=== PATIENT | female | born 1965 | race Caucasian/White ===

== ENCOUNTER → 2018-10-08 08:20 | Outpatient (CLI) | payer MEDICAID | END | disposition home or self-care (01) | LOC: D.OPS 10-03 09:30 | PROVIDERS: ATTEND Surgery | DX: K21.9 Gastro-esophageal reflux disease without esophagitis (principal); Z01.812 Encounter for preprocedural laboratory examination ==

== ENCOUNTER 2018-11-13 08:16 | Inpatient (IN) | payer MEDICAID ==
[~2018-11-13 08:16] MED LIST: AMBIEN10 MG PO; AVAPRO150 MG PO; OMEPRAZOLE40 MG PO
[2018-11-13 08:46] LABS: HEMATOCRIT 41.5 % (36.0-48.0); HEMOGLOBIN 13.9 g/dL (12-16); MCH 28.5 pg (26.0-34.0); MCHC 33.5 g/dL (31.0-37.0); MEAN PLATELET VOLUME 8.8 fL (7.4-10.4); RBC 4.88 10x6/uL (4.00-5.40); RDW 14.7 % (11.5-14.5); WBC 13.5 10x3/uL (4.8-10.8)
[2018-11-13 10:41] VITALS: BP 165/93; BMI 25.1
[2018-11-13 13:30] LABS: HEMATOCRIT 36.7 % (36.0-48.0); HEMOGLOBIN 12.2 g/dL (12-16)
--- NOTE | 2018-11-13 15:18 | NUR ---
80CC OF DRAINAGE REMOVED FROM JEZ DRAIN @6752
[2018-11-13 15:41] VITALS: BP 148/73
[2018-11-13 17:22] VITALS: BMI 24.6
[2018-11-13 18:32] LABS: HEMOGLOBIN 11.3 g/dL (12-16)
--- NOTE | 2018-11-13 19:45 | NUR ---
PT RESTING IN BED. ALERT AND ORIENTED. NO SIGNS OF DISTRESS. BREATHING EVEN AND UNLABORED. PT STATES NO PROBLEMS AT THIS TIME. IV SITE RT WRIST DRESSING CLEAN DRY AND INTACT. NO SIGNS OF INFECTION. DRESSINGS ABD CLEAN DRY AND INTACT. RLQ AND LLQ HYPOACTIVE BOWEL SOUNDS. RUQ AND LUQ BOWEL SOUNDS ABSENT. NO LOWER LEG SWELLING PRESENT. WILL CONTINUE PLAN OF CARE. CALL LIGHT IN REACH. BED LOWERED AND LOCKED. BED RAILS UP X2. JEZ DRAIN LT LOWER ABD DRESSING CLEAN DRY AND INTACT.
[2018-11-13 22:28] VITALS: BP 156/95
--- NOTE | 2018-11-14 03:42 | NUR ---
I have reviewed this patient and I concur with the Shift Assessment completed by the Licensed Practical Nurse today this shift.
[2018-11-14 05:02] VITALS: BP 171/97
[2018-11-14 05:51] LABS: BASOPHILS 0.1 % (0-2); EOSINOPHILS 0 % (0-7); HEMATOCRIT 33.8 % (36.0-48.0); HEMOGLOBIN 11.1 g/dL (12-16); IMMATURE GRANULOCYTES 0.4 % (0-5); LYMPHOCYTES 8.8 % (15-50); MCHC 32.8 g/dL (31.0-37.0); MCV 85.1 fL (80.0-100.0); MEAN PLATELET VOLUME 9.1 fL (7.4-10.4); MONOCYTES 4.6 % (2-11); NEUTROPHILS 86.1 % (40-80); PLATELET COUNT 335 10x3/uL (130-400); RBC 3.97 10x6/uL (4.00-5.40); RDW 14.6 % (11.5-14.5)
[2018-11-14 05:55] LABS: WBC 19.4 10x3/uL (4.8-10.8)
[2018-11-14 06:17] LABS: ALBUMIN 3.1 g/dL (3.4-5.0); ANION GAP 11.9 mmol/L (8-16); BILIRUBIN - TOTAL 0.39 mg/dL (0.2-1.3); CALCIUM 8.4 mg/dL (8.5-10.1); CARBON DIOXIDE 28.7 mmol/L (21.0-32.0); CREATININE - SERUM 1.3 mg/dL (0.6-1.3); POTASSIUM - SERUM 3.6 mmol/L (3.5-5.1); PROTEIN - SERUM 6.7 g/dL (6.4-8.2)
--- NOTE | 2018-11-14 07:37 | NUR ---
ALERT AND ORIENTED X 3. LUNGS CLEAR BILATERALLY IN ALL GARCIA. HEART SOUNDS S1 AND S2 HEARD IN ALL GARCIA. BOWEL SOUNDS ACTIVE X 4. JEZ DRAIN TO LUQ DRAINING RED FLUID. LAP SITES TO ABD WITH STERI STRIPS INTACT. NO DRAINAGE FROM LAP SITES NOTED. IV TO LFA PATENT WITHOUT REDNESS. IV TO RIGHT WRIST PATENT WITHOUT REDNESS. SKIN INTACT WTIHOUT REDNESS. STATES PAIN 3/10. DENIES NEEDS. WILL CONTINUE TO MONITOR.
[2018-11-14 08:20] VITALS: BP 176/91
--- NOTE | 2018-11-14 09:23 | NUR ---
AMBULATED 250 FEET WITH NURSE STANDBY ASSIST WITHOUT DIFFICULTY
--- NOTE | 2018-11-14 10:45 | NUR ---
PATIENT LYING IN BED. DENIES PAIN. DENIES NEEDS.
--- NOTE | 2018-11-14 12:04 | NUR ---
IV TO RIGHT WRIST LEAKING. REMOVED WITH CATHETER TIP INTACT. FLUIDS MOVED TO IV IN LFA.
[2018-11-14 12:26] VITALS: BP 132/73
--- NOTE | 2018-11-14 14:09 | NUR ---
PATIENT RESTING IN BED. DENIES PAIN. DENIES NEEDS AT THIS TIME
[2018-11-14 14:44] VITALS: BP 118/74
--- NOTE | 2018-11-14 15:27 | NUR ---
AMBULATED 750 FEET PER NURSING. JEZ DRAINED WITH 15CC DRAINAGE NOTED
--- NOTE | 2018-11-14 16:36 | NUR ---
PATIENT RESTING IN BED. DENIES PAIN. DENIES NEEDS. WILL CONTINUE TO MONITOR.
--- NOTE | 2018-11-14 18:49 | NUR ---
PATIENT RESTING. DENIES PAIN. DENIES NEEDS
--- NOTE | 2018-11-14 20:28 | NUR ---
AMBULATED AROUND UNIT X 4. NO DISTRESS NOTED. JEZ DRAIN TO LEFT ABD INTACT AND COMPRESSED WITH DARK BLOODY DRAINAGE NOTED. LAP SITES WITH STERI STRIPS INTACT.NO DRAINAGE NOTED.ABD TENDER,NON DISTENDED. NO COMPLAINTS VOICED. BLUEPRINT MACHINE OPERATOR DILAUDID IN USE FOR PAIN CONTROL. CL IN REACH
[2018-11-14 20:52] VITALS: BP 101/62
[2018-11-15 01:02] VITALS: BP 114/68
--- NOTE | 2018-11-15 03:26 | NUR ---
I have reviewed this patient and I concur with the Shift Assessment completed by the Licensed Practical Nurse today this shift.
[2018-11-15 03:52] LABS: BASOPHILS 0.1 % (0-2); EOSINOPHILS 0.1 % (0-7); IMMATURE GRANULOCYTES 0.3 % (0-5); LYMPHOCYTES 11.5 % (15-50); MCH 28.2 pg (26.0-34.0); MCHC 33.5 g/dL (31.0-37.0); MCV 84.3 fL (80.0-100.0); MEAN PLATELET VOLUME 8.9 fL (7.4-10.4); MONOCYTES 5.6 % (2-11); NEUTROPHILS 82.4 % (40-80); PLATELET COUNT 268 10x3/uL (130-400); RDW 14.6 % (11.5-14.5)
[2018-11-15 03:54] LABS: HEMATOCRIT 26.3 % (36.0-48.0); HEMOGLOBIN 8.8 g/dL (12-16); RBC 3.12 10x6/uL (4.00-5.40)
[2018-11-15 04:03] LABS: ANION GAP 7.3 mmol/L (8-16); CALCIUM 7.8 mg/dL (8.5-10.1); CARBON DIOXIDE 33.3 mmol/L (21.0-32.0); POTASSIUM - SERUM 3.6 mmol/L (3.5-5.1)
[2018-11-15 04:54] VITALS: BP 109/68
[2018-11-15 07:59] VITALS: BP 87/44
--- NOTE | 2018-11-15 10:03 | NUR ---
SECONDARY IV STARTED TO RT. FOREARM WITH 20G X 1 STICK. WITH 1ST UNIT PRBC'S INFUSING AT PRESCRIBEDE RATE. NO S/S OF REACTION NOTED AT THIS TIME. QUINTON INTACT TO ABDOMEN WITH J/P DRAIN INTACT WITH DARK BLOOD NOTED.ENCOURAGED TO USE CALL LIGHT FOR ASSIST. BS NOTED X4 WITH STATED FLATULANCE
[2018-11-15 11:24] VITALS: BP 111/69
--- NOTE | 2018-11-15 12:19 | NUR ---
FINISHED 1ST UNIT PRBC'S AND STARTED SECOND WITH NO S/S OF REACTION NOTED. DENIES ANY PAIN OR DISCOMFORT. ENCOURAGED TO USE CALL LIGHT FOR ASSIST
--- NOTE | 2018-11-15 15:22 | NUR ---
FINISHED SECOND UNIT PRBC'S AND STARTED PLASMA. NO S/S OF REACTION NOTED WITH DILAUDID 0.5ML GIVEN FOR AGDOMINAL PAIN 10.
[2018-11-15 16:17] VITALS: BP 133/79
--- NOTE | 2018-11-15 19:40 | NUR ---
PT ALERT AND ORIENTED. FAMILY AT BEDSIDE. ASKED TO BE UNHOOKED FROM IV MACHINE SO PT COULD AMBULATE FLOOR WITH FAMILY. PT AMBULATED UNIT 5 TIMES WITH NO PROBLEM.
--- NOTE | 2018-11-15 19:45 | NUR ---
PT ALERT AND ORIENTED
[2018-11-15 20:00] VITALS: BP 132/75
--- NOTE | 2018-11-16 00:02 | NUR ---
RESTING WITH UNLABORED BREATHING AND EYES CLOSED. REAMINS AT BEDSIDE. IV IN BILATERALY FOREARMS. LEFT ARM SALINE LOCKED. RIGHT FOREARM INFUSING LR @ 30 PER ORDER. CALL LIGHT IN REACH. BED RAILS UP X 2.
--- NOTE | 2018-11-16 02:27 | NUR ---
REQUESTED PAIN MEDICINE. ADMINSITERED ORDERED.
[2018-11-16 03:00] VITALS: BP 121/65
[2018-11-16 05:19] LABS: BASOPHILS 0.1 % (0-2); EOSINOPHILS 0.1 % (0-7); HEMATOCRIT 30.8 % (36.0-48.0); HEMOGLOBIN 10.5 g/dL (12-16); IMMATURE GRANULOCYTES 0.2 % (0-5); LYMPHOCYTES 16.2 % (15-50); MCH 28.6 pg (26.0-34.0); MCHC 34.1 g/dL (31.0-37.0); MCV 83.9 fL (80.0-100.0); MEAN PLATELET VOLUME 9.3 fL (7.4-10.4); MONOCYTES 6.3 % (2-11); NEUTROPHILS 77.1 % (40-80); PLATELET COUNT 222 10x3/uL (130-400); RBC 3.67 10x6/uL (4.00-5.40); RDW 14.6 % (11.5-14.5)
[2018-11-16 05:30] LABS: WBC 10.7 10x3/uL (4.8-10.8)
[2018-11-16 05:32] LABS: CALCIUM 8.1 mg/dL (8.5-10.1); CARBON DIOXIDE 32.3 mmol/L (21.0-32.0); POTASSIUM - SERUM 3.3 mmol/L (3.5-5.1)
[2018-11-16 05:36] LABS: CREATININE - SERUM 1.6 mg/dL (0.6-1.3)
--- NOTE | 2018-11-16 06:54 | NUR ---
I CONCUR WITH ADMINISTRATIVE SUPPORT ASSOCIATE ASSESSMENT.
--- NOTE | 2018-11-16 09:33 | NUR ---
ALERT AND ORIENTED WITH BS NOTED X4 AND NONTENDER ON PALPATION. QUINTON INTACT. NORCO GIVEN FOR GENERALIZED DISCOMFORT AFTER ABMULATING 5 LAPS IN HALLWAY. JEZ DRAIN INTACT WITH DARK BROWN SEDEMENT NOTED. ENCOURAGED O USE CALLL LIGHT FOR ASSIST.
[2018-11-16 09:50] VITALS: BP 111/63
[2018-11-16] MEDS ORDERED: HYDROCODON-ACE1 EA10 PO (10:08)
--- NOTE | 2018-11-16 11:55 | NUR ---
IV'S DISCONTINUED WITH VERBALIZED UNDERSTANDING OF DISCHARGE INSTRUCTIONS. STABLE AT TIME OF DEPARTURE. RX GIVEN TO PT.
== END 2018-11-16 12:00 | disposition home or self-care (01) | DRG 908 ==
LOC: D.MS 08:16 → D.OPS 08:16 → D.PAN 09:45 → D.OPS 09:45 → D.MS 15:07 → D.OPS 15:08 → D.MS 15:08
PROVIDERS: Anesthesiology; ADMIT Surgery; ATTEND Surgery
PROC: 0DNW4ZZ Release Peritoneum, Percutaneous Endoscopic Approach (ICD-10-PCS; 2018-11-13)
PROC: 0DV44ZZ Restriction of Esophagogastric Junction, Percutaneous Endoscopic Approach (ICD-10-PCS; principal; 2018-11-13 10:45)
PROC: 0BQT4ZZ Repair Diaphragm, Percutaneous Endoscopic Approach (ICD-10-PCS; 2018-11-13 10:45)
DX: K91.61 Intraoperative hemorrhage and hematoma of a digestive system organ or structure complicating a digestive system procedure (principal); D62 Acute posthemorrhagic anemia; K21.9 Gastro-esophageal reflux disease without esophagitis; I10 Essential (primary) hypertension; K27.7 Chronic peptic ulcer, site unspecified, without hemorrhage or perforation

== ENCOUNTER → 2019-05-22 16:54 | Outpatient (CLI) | payer MEDICAID ==
[~2019-05-22 16:54] MED LIST changes: +HYDROCODON-ACE1 EA10 PO
== END | disposition home or self-care (01) ==
LOC: D.LABREF 16:54
PROVIDERS: ATTEND Internal Medicine Gastroenterology
DX: R13.10 Dysphagia, unspecified (principal); R63.4 Abnormal weight loss; R14.2 Eructation; R14.0 Abdominal distension (gaseous); R11.2 Nausea with vomiting, unspecified; R10.84 Generalized abdominal pain